=== PATIENT | female | born 1945 | race Caucasian/White ===

== ENCOUNTER 2018-09-25 14:23 | Outpatient (CLI) | payer MEDICARE ==
--- NOTE | 2018-09-25 16:27 | BD ---
Exam: DEXA Bone Density 09/25/18 HISTORY: 73-year-old postmenopausal female for screening. COMPARISON: None. FINDINGS: Lumbar Spine: BMD (g/cm2) L1 0.885 T-Score: -1.0 L2 1.162 T-Score: 1.2 L3 1.212 T-Score: 1.2 L4 1.353 T-Score: 2.7 L1-L4 1.165 T-Score: 1.1 Left Femoral Neck: 0.674 T-Score: -1.6 Total proximal left Femur: 0.886 T-Score: -0.5 Impression: Osteopenia. POS: [facility]
== END 2018-09-25 14:24 | disposition home or self-care (01) ==
LOC: BICMAMMO 14:23
PROVIDERS: ATTEND Nurse Practitioner Family
DX: M81.0 Age-related osteoporosis without current pathological fracture (principal); M85.89 Other specified disorders of bone density and structure, multiple sites
CPT/HCPCS: 77080

== ENCOUNTER 2019-02-25 14:40 | Outpatient (CLI) | payer MEDICARE ==
--- NOTE | 2019-02-25 14:54 | RAD ---
Chest 2 views HISTORY: Cough. Bronchitis. FINDINGS: Cardiac silhouette is unremarkable. Pulmonary vasculature upper limits of normal. Mediastin um is midline with aortic calcification. Calcified granulomata are consistent with healed atheromatous disease. No confluent airspace consolidation, pneumothorax, or pleural fluid are apparen t. IMPRESSION: Atherosclerosis. No active cardiopulmonary abnormalities are otherwise demonstrated.
== END 2019-02-25 14:41 | disposition home or self-care (01) ==
LOC: BICRAD 14:40
PROVIDERS: ATTEND Specialist
DX: J40 Bronchitis, not specified as acute or chronic (principal); R05 Cough; I70.0 Atherosclerosis of aorta
CPT/HCPCS: 71046

== ENCOUNTER 2022-10-25 15:03 | Outpatient (CLI) | payer MEDICARE | END 2022-10-25 15:04 | disposition home or self-care (01) | LOC: BICMAMMO 15:03 | PROVIDERS: ATTEND Plastic Surgery Surgery of the Hand | DX: Z12.31 Encounter for screening mammogram for malignant neoplasm of breast (principal); R92.8 Other abnormal and inconclusive findings on diagnostic imaging of breast | CPT/HCPCS: 77065; G0279 ==

== ENCOUNTER 2023-01-11 10:22 | Emergency (ER) | payer MEDICARE ==
[~2023-01-11 10:22] MED LIST: Iopamidol-370 76% 500 ML 1 ML ONE
[2023-01-11 10:49] LABS: #Monocytes 1.1 thou/uL (0.11-0.59); #Neutrophils 5.9 thou/uL (1.40-6.50); %Basophils 0.3 % (0.0-1.0); %Eosinophils 0.2 % (0.0-10.0); %Lymphocytes 12.4 % (21.0-51.0); %Monocytes 14.1 % (0.0-10.0); Mean Corpuscular HGB CONC 33.1 g/dL (32.0-36.0); Mean Platelet Volume 7.5 fL (7.4-10.4); Platelet Count 303 10x3/uL (130-400); RBC Distribution Width 11.5 % (11.5-14.5); Red Blood Cell (RBC) Count 3.95 mill/uL (4.20-5.40)
[2023-01-11 11:11] LABS: ALT (SGPT) 19 U/L (8-55); AST (SGOT) 29 U/L (5-34); Albumin 4.1 g/dL (3.4-4.8); Alkaline Phosphatase 46 U/L (40-110); Anion Gap 14 mmol/L (10-20); BUN (Urea Nitrogen) 17 mg/dL (9.8-20.1); Bilirubin, Total 1.2 mg/dL (0.2-1.2); Calc. Creatinine Clearance 0 mL/min (70-130); Calcium 8.9 mg/dL (7.8-10.44); Carbon Dioxide 26 mmol/L (23-31); Chloride 104 mmol/L (98-107); Estimated GFR 61; Globulin 2.6 g/dL (2.4-3.5); Glucose 141 mg/dL (83-110); Potassium 3.8 mmol/L (3.5-5.1); Protein, Total 6.7 g/dL (5.8-8.1); Sodium 140 mmol/L (136-145)
[2023-01-11] MEDS ORDERED: Ketorolac Tromethamine 30 MG/ML VIAL ONE (11:59)
== END 2023-01-11 13:00 | disposition home or self-care (01) ==
LOC: ERS 10:22
DX: S22.32XA Fracture of one rib, left side, initial encounter for closed fracture (principal); S22.31XA Fracture of one rib, right side, initial encounter for closed fracture; S00.83XA Contusion of other part of head, initial encounter; S40.022A Contusion of left upper arm, initial encounter; E03.9 Hypothyroidism, unspecified; E78.00 Pure hypercholesterolemia, unspecified; I10 Essential (primary) hypertension; Z79.899 Other long term (current) drug therapy; Y04.8XXA Assault by other bodily force, initial encounter
CPT/HCPCS: 70450; 70486; 71260; 72125; 74177; 80053; 85025; 96374; G0390; J1885; Q9967